=== PATIENT | female | born 1990 | race Caucasian/White ===

== ENCOUNTER 2016-12-06 15:22 | Emergency (ER) | payer OTHER ==
[~2016-12-06] VITALS: Ht 157.5 cm; Wt 75.0 kg
[2016-12-06] MEDS ORDERED: PEN-VEE K,VEET500 MG PO (16:27)
[2016-12-06] MEDS ORDERED: MOTRIN600 MG PO (16:27)
[2016-12-06 16:44] VITALS: BP 149/67
== END 2016-12-06 16:47 | disposition home or self-care (01) ==
LOC: EME 15:22
DX: K08.89 Other specified disorders of teeth and supporting structures (principal); K02.9 Dental caries, unspecified; K03.81 Cracked tooth; H92.02 Otalgia, left ear; F17.200 Nicotine dependence, unspecified, uncomplicated
CPT/HCPCS: 99281; 99283